=== PATIENT | female | born 1995 | race Caucasian/White ===

== ENCOUNTER 2019-08-12 12:30 | Emergency (ER) | payer OTHER, SELFPAY ==
[2019-08-12 12:40] VITALS: BP 153/88; PULSE 83; RESP 14; TEMP 36.7; O2SAT 98
[2019-08-12 14:02] LABS: Bacteria Urine None Seen; RBC Urine None Seen (0-5/HPF)
[2019-08-12 14:06] LABS: Culture Indicated Urine Cult Not Indicated; Squamous Epithelial Cell Urine 5-10 /HPF (0-5/HPF); WBC Urine 5-10/HPF (0-5/HPF)
[2019-08-12 15:00] VITALS: BP 132/71; PULSE 76; O2SAT 98
--- NOTE | 2019-08-12 17:04 | ED.FEMALEGU ---
HPI - Female Genitourinary <ZEINA Nails - Last Filed: 08/12/19 17:08> General Chief complaint: Urogenital-Female Stated complaint: 18 wks , blood in urine Time Seen by Provider: 08/12/19 12:42 Source: patient Mode of arrival: Ambulatory Limitations: no limitations History of Present Illness HPI Narrative: The patient is a 23-year-old female nonsmoker who is 18 weeks presents with a chief complaint of bloody urine that started yesterday. She states that her urine is very dark. She denies any abnormal dysuria, but complains of slight frequency. No urgency. She denies any fevers nausea vomiting or diarrhea. She denies any possibility of sexually transmitted infections. She is concerned about urinary tract infection. She denies any vaginal bleeding, states that she is positive that the blood is in her urine. She denies any flank pain. Related Data Previous Rx's Medication Instructions Recorded cephalexin 500 mg PO QID 7 Days #28 cap 08/12/19 Allergies Allergy/AdvReac Type Severity Reaction Status Date / Time No Known Drug Allergies Allergy Verified 08/12/19 12:46 Review of Systems <ZEINA Nails - Last Filed: 08/12/19 17:08> Review of Systems Narrative: GENERAL: Denies chills, fatigue, malaise, fever, sweats. HEENT: Denies sinus pain, ear pain, sore throat, difficulty swallowing, dizziness. RESPIRATORY: Denies dyspnea, cough, wheezing, hemoptysis, sputum. CARDIOVASCULAR: Denies chest pain, palpitations, orthopnea, edema, GASTROINTESTINAL: Denies nausea, vomiting, abdominal pain, diarrhea, constipation, melena. : See HPI MUSCULOSKELETAL: denies weakness, joint pain, or bony pain SKIN: Denies rash, skin lesions, or other NEUROLOGIC: Denies weakness, headache, numbness, change in speech, confusion, seizures, incoordination. PSYCHIATRIC: No concerning psychosocial issues. 12 point review of systems is negative except for those stated above Exam <ZEINA Nails - Last Filed: 08/12/19 17:08> Narrative Exam Narrative: GENERAL: This is a well-nourished, well-developed patient, in no acute distress HEAD: Atraumatic. Normocephalic. No temporal or scalp tenderness. EYES: Pupils equal round and reactive. Extraocular motions intact. No scleral icterus. No injection or drainage. ENT: Nose without bleeding, purulent drainage or septal hematoma. Throat without erythema, tonsillar hypertrophy or exudate. Uvula midline. Airway patent. NECK: Trachea midline. No JVD or lymphadenopathy. Supple, nontender, no meningeal signs. CARDIOVASCULAR: Regular rate and rhythm RESPIRATORY: Clear to auscultation. Breath sounds equal bilaterally. No wheezes, rales, or rhonchi. No cough. No increased respiratory effort. No accessory muscle use. GASTROINTESTINAL: Abdomen soft, non-tender, nondistended. No hepato-splenomegaly, or palpable masses. No guarding. Active bowel sounds all 4 quadrants. EXTREMITIES: No clubbing, cyanosis, or edema. No joint tenderness, effusion, or edema noted. BACK: Nontender without deformity or crepitance. No flank tenderness. NEURO: AOx3. SKIN: No rash or erythema. Gu: With a Mely RN at bedside, no bleeding on exterior vaginal exam, no blood noted during bimanual, no pain on bimanual. Initial Vital Signs Initial Vital Signs: Vital Signs Temperature 98.0 F 08/12/19 12:40 Pulse Rate 83 08/12/19 12:40 Respiratory Rate 14 08/12/19 12:40 Blood Pressure 153/88 H 08/12/19 12:40 Pulse Oximetry 98 08/12/19 12:40 <Duane Tobias DO - Last Filed: 08/12/19 18:42> Initial Vital Signs Initial Vital Signs: Vital Signs Temperature 98.0 F 08/12/19 12:40 Pulse Rate 83 08/12/19 12:40 Respiratory Rate 14 08/12/19 12:40 Blood Pressure 153/88 H 08/12/19 12:40 Pulse Oximetry 98 08/12/19 12:40 Scores <ZEINA Nails - Last Filed: 08/12/19 17:08> GCS [place] coma scale eye opening: Spontaneous [place] coma scale verbal response: Orientated [place] coma scale motor response: Obey commands [place] coma scale total score: 15 Course <ZEINA Nails - Last Filed: 08/12/19 17:08> Orders Ordered: ED Orders 08/12/19 13:04 Urine Culture Stat 08/12/19 13:52 Urine Microscopic Stat Vital Signs Vital signs: Vital Signs - 8 hr 08/12/19 12:40 08/12/19 15:00 Temperature 98.0 F Pulse Rate 83 76 Respiratory Rate 14 Blood Pressure 153/88 H Blood Pressure [Right Arm] 132/71 Pulse Oximetry 98 98 <Duane Tobias DO - Last Filed: 08/12/19 18:42> Orders Ordered: ED Orders 08/12/19 13:04 Urine Culture Stat 08/12/19 13:52 Urine Microscopic Stat Vital Signs Vital signs: Vital Signs - 8 hr 08/12/19 12:40 08/12/19 15:00 Temperature 98.0 F Pulse Rate 83 76 Respiratory Rate 14 Blood Pressure 153/88 H Blood Pressure [Right Arm] 132/71 Pulse Oximetry 98 98 MDM - Female Genitourinary <ZEV NailsBC - Last Filed: 08/12/19 17:08> Lab Data Labs: Lab Results 08/12/19 Range/Units 13:52 Urine RBC None seen (0-5/HPF) Urine WBC 5-10/hpf H (0-5/HPF) Ur Squamous Epith Cells 5-10 /hpf H (0-5/HPF) Urine Bacteria None seen (None) Ur Culture Indicated? Cult not indicated Urine Dip Bedside Urine Glucose Negative Bedside Urine Bilirubin - Negative Bedside Urine Ketone - Negative Urine Specific [place] 1.015 Bedside Urine Occult Blood +++ Bedside Urine pH 6.0 Bedside Urine Protein +/- 15 Bedside Urine Urobilinogen - Negative Bedside Urine Nitrite - Negative Bedside Urine Leukocytes - Negative Esterase MDM Narrative Medical decision making narrative: The patient is a 23-year-old female who presents with a chief complaint of dark, bloody urine. She has white blood cells red blood cells on urinalysis. She has no bladder vaginal exam. heart tones are in the 140s. Discussed using Keflex, monitoring for signs and symptoms of worsening, the importance of following up with primary care provider. Urine culture added. Discussed at length coming back to the emergency department for any acute concerns. Patient has been of no questions or concerns upon discharge and state understanding of return precautions as well as follow-up care. <Duane Tobias DO - Last Filed: 08/12/19 18:42> Lab Data Labs: Lab Results 08/12/19 Range/Units 13:52 Urine RBC None seen (0-5/HPF) Urine WBC 5-10/hpf H (0-5/HPF) Ur Squamous Epith Cells 5-10 /hpf H (0-5/HPF) Urine Bacteria None seen (None) Ur Culture Indicated? Cult not indicated Urine Dip Bedside Urine Glucose Negative Bedside Urine Bilirubin - Negative Bedside Urine Ketone - Negative Urine Specific [place] 1.015 Bedside Urine Occult Blood +++ Bedside Urine pH 6.0 Bedside Urine Protein +/- 15 Bedside Urine Urobilinogen - Negative Bedside Urine Nitrite - Negative Bedside Urine Leukocytes - Negative Esterase Discharge Plan Departure Patient Disposition: Home Clinical Impression: Urinary tract infection Qualifiers: Urinary tract infection type: site unspecified Hematuria presence: with hematuria Qualified Code(s): N39.0 - Urinary tract infection, site not specified Discharge Date/Time: 08/12/19 15:12 Instructions: DI for Urinary Tract Infection (UTI) Activity Restrictions/Additional Instructions: As discussed, please follow-up with primary care provider. [facility] [place]. Please take this with yogurt or probiotic. Please come back to the emergency department for any acute concerns Prescriptions: New cephalexin 500 mg capsule 500 mg PO QID 7 Days Qty: 28 RF: 0 Referrals: Janey Zuniga MD [Primary Care Provider] -
== END 2019-08-12 15:12 | disposition home or self-care (01) ==
PROVIDERS: Emergency Provider Nurse Practitioner Family; PCP Family Medicine
DX: O23.42 Unspecified infection of urinary tract in pregnancy, second trimester (principal); R31.9 Hematuria, unspecified; Z3A.18 18 weeks gestation of pregnancy
CPT/HCPCS: 81003; 81015; 87086; 99283

== ENCOUNTER → 2019-10-31 11:42 | Outpatient (CLI) | payer OTHER, SELFPAY ==
[2019-10-31 14:19] LABS: Add Manual Diff / Slide Review NO; Basophils Absolute Auto 0 /uL (0-100); Basophils Percent Auto 0.2 % (0-2); Eosinophils Absolute Auto 100 /uL (0-450); Eosinophils Percent Auto 1.2 % (2-4); Hematocrit 35.7 % (36-46); Hemoglobin 12.1 g/dL (12.0-16.0); Lymphocytes Absolute Auto 1300 /uL (1100-4500); Lymphocytes Percent Auto 18.8 % (25-40); Mean Corpuscular HGB Conc 33.8 % (30-36); Mean Corpuscular Hemoglobin 33.7 PG (26-34); Mean Corpuscular Volume 99.6 fL (80-100); Monocytes Absolute Auto 500 /uL (0-900); Monocytes Percent Auto 7.3 % (3-14); Neutrophils Absolute Auto 5100 /uL (1500-7000); Neutrophils Percent Auto 72.5 % (50-75); Platelet Count 172 X10^3/uL (150-400); Red Blood Cell Count 3.58 X10^6/uL (4.0-5.2); Red Cell Distribution Width 12.7 % (11.6-14.8)
[2019-10-31 14:49] LABS: GTT (PREG) 1 Hour PP 50gm Dose 80 mg/dL (76-139)
== END ==
PROVIDERS: PCP Family Medicine; Referring Provider Family Medicine; Visit Provider Family Medicine
DX: Z34.00 Encounter for supervision of normal first pregnancy, unspecified trimester (principal); Z3A.25 25 weeks gestation of pregnancy
CPT/HCPCS: 36415; 82950; 85025

== ENCOUNTER → 2019-12-13 11:36 | Outpatient (CLI) | payer OTHER, SELFPAY ==
[2019-12-14 11:42] LABS: Strep Grp B PCR POS for Grp B Strep
== END ==
PROVIDERS: PCP Family Medicine; Visit Provider Family Medicine
DX: Z34.03 Encounter for supervision of normal first pregnancy, third trimester (principal); Z3A.36 36 weeks gestation of pregnancy
CPT/HCPCS: 87653

== ENCOUNTER 2019-12-27 16:53 | Outpatient (CLI) | payer OTHER, SELFPAY ==
--- NOTE | 2019-12-27 17:05 | PM.OBTRLD ---
Visit Information Visit Information Date of evaluation: 12/27/19 Primary OB Provider: Eleanor Solomon Reason for Evaluation: Yes other Comments/Additional reasons for admission: Elevated BP in clinic. Evaluation for pre-eclampsia. No headache, RUQ pain, worsening swelling, vision changes. [facility], [facility] Medical History (Updated 12/28/19 @ 14:09 by Eleanor Solomon MD) Asthma (Acute) Surgical History (Updated 10/02/19 @ 14:51 by Zoya Chapman, RN) H/O wisdom tooth extraction (Acute ~2014) S/P bunionectomy (Acute ~2013) Family History (Updated 10/02/19 @ 14:49 by Zoya Chapman, DONTE) Sister Hydrocephalus Sister Miscarriage Mother Hypertension Father No problems noted. 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 Labs negative for pre-eclampsia and HELLP. NST reactive. Safe to d/c home. With single elevation would not diagnose gHTN. Will have pt check her BPs daily at home. Aware of signs/symptoms of pre-eclampsia to monitor for. F/U next week for regularly scheduled OB appt. OB Disposition: home
[2019-12-27 18:08] LABS: Add Manual Diff / Slide Review NO; Basophils Absolute Auto 100 /uL (0-100); Basophils Percent Auto 2.1 % (0-2); Eosinophils Absolute Auto 100 /uL (0-450); Eosinophils Percent Auto 0.8 % (2-4); Hematocrit 34.9 % (36-46); Hemoglobin 11.8 g/dL (12.0-16.0); Lymphocytes Absolute Auto 1400 /uL (1100-4500); Lymphocytes Percent Auto 19.7 % (25-40); Mean Corpuscular HGB Conc 33.9 % (30-36); Mean Corpuscular Hemoglobin 33.2 PG (26-34); Mean Corpuscular Volume 97.8 fL (80-100); Monocytes Absolute Auto 500 /uL (0-900); Monocytes Percent Auto 6.6 % (3-14); Neutrophils Absolute Auto 4900 /uL (1500-7000); Neutrophils Percent Auto 70.8 % (50-75); Platelet Count 152 X10^3/uL (150-400); Red Blood Cell Count 3.57 X10^6/uL (4.0-5.2); Red Cell Distribution Width 12.7 % (11.6-14.8)
[2019-12-27 18:15] LABS: Alanine Aminotransferase 13 IU/L (<35); Albumin 3.7 g/dL (3.5-5.0); Albumin Globulin Ratio 1.4 (1.0-2.8); Alkaline Phosphatase 100 U/L (38-126); Aspartate Aminotransferase 21 IU/L (14-36); Bilirubin Total 0.6 mg/dL (0.2-1.3); Blood Urea Nitrogen 8 mg/dL (7-17); Calcium 10.2 mg/dL (8.4-10.2); Carbon Dioxide 22 mmol/L (22-32); Chloride 106 mmol/L (98-107); Estimated Glomerular Filt Rate > 60.0 mL/min (>60); Globulin 2.7 g/dL (1.7-4.1); Glucose 122 mg/dL (70-100); HEMOLYSIS < 15 (0-50); Potassium 3.5 mmol/L (3.4-5.1); Sodium 135 mmol/L (137-145); Total Protein 6.4 g/dL (6.3-8.2); Uric Acid 2.5 mg/dL (2.5-6.2)
[2019-12-27 18:42] LABS: Creatinine Urine Random 89.4 mg/dL; Protein (Total) Urine Random 11 mg/dL (0-12); Protein Creatinine Ratio Urine 0.12 GRAM/24H
== END 2019-12-27 18:51 | disposition home or self-care (01) ==
LOC: OB 12-29 12:43
PROVIDERS: PCP Family Medicine; Referring Provider Family Medicine; Visit Provider Family Medicine
DX: O26.893 Other specified pregnancy related conditions, third trimester (principal); R03.0 Elevated blood-pressure reading, without diagnosis of hypertension; Z3A.37 37 weeks gestation of pregnancy
CPT/HCPCS: 36415; 59025; 80053; 82570; 84156; 84550; 85025; G0378; G0379

== ENCOUNTER → 2020-01-21 14:00 | Outpatient (CLI) | payer OTHER, SELFPAY ==
[2020-01-22 20:35] LABS: COVID19 Sendout Not Detected (Not Detect)
== END ==
PROVIDERS: PCP Family Medicine; Visit Provider Nurse Practitioner
DX: Z11.59 Encounter for screening for other viral diseases (principal)
CPT/HCPCS: 87635

== ENCOUNTER 2020-01-22 03:10 | Observation (INO) | payer OTHER, SELFPAY ==
--- NOTE | 2020-01-22 09:59 | P.TNLD_ITS ---
Visit Information Visit Information Date of evaluation: 01/22/20 Primary OB Provider: Eleanor Solomon On-call OB Provider: Adeline Radford Reason for Evaluation: Yes rule out labor [facility] Medical History (Updated 01/19/20 @ 15:13 by Eleanor Solomon MD) Asthma (Acute) Surgical History (Updated 10/02/19 @ 14:51 by Zoya Chapman, RN) H/O wisdom tooth extraction (Acute ~2014) S/P bunionectomy (Acute ~2013) Family History (Updated 10/02/19 @ 14:49 by Zoya Chapman, RN) Sister Hydrocephalus Sister Miscarriage Mother Hypertension Father No problems noted. 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 needs: No Smoking Status: Former smoker Tobacco: How many years used: 4 second hand exposure: No alcohol intake: former substance use type: does not use Evaluation Evaluation Baseline heart rate: 140 Variability: Moderate (11-25) monitor accelerations: Present monitor decelerations: Absent Contraction Frequency (minutes): 8 Uterine Contraction Intensity: Mild Category of Tracing: I Cervical dilation (cm): 1 Cervical effacement (%): 60 station: -2 Diagnosis, Plan/Disposition Plan/Disposition Plan: Assessment: 24 year old at 41 weeks not in active labor Scheduled for induction tonight Plan: S/S labor reviewed Induction tonight OB Disposition: home
== END 2020-01-22 05:40 | disposition home or self-care (01) ==
LOC: LABOR 03:18
PROVIDERS: Admitting Provider Family Medicine; PCP Family Medicine; Referring Provider Family Medicine; Visit Provider Family Medicine
DX: Z3A.40 40 weeks gestation of pregnancy (principal)
CPT/HCPCS: 59025; G0378; G0379

== ENCOUNTER 2020-01-22 18:06 | Inpatient (IN) | payer OTHER, SELFPAY ==
[2020-01-22] MEDS: DINOPROSTONE VAG (CERVIDIL) 10 MG VAG (19:52)
[2020-01-22 20:12] VITALS: BP 139/67
[2020-01-22 20:42] LABS: Add Manual Diff / Slide Review NO; Basophils Absolute Auto 0 /uL (0-100); Basophils Percent Auto 0.4 % (0-2); Eosinophils Absolute Auto 100 /uL (0-450); Hematocrit 35.9 % (36-46); Hemoglobin 12.2 g/dL (12.0-16.0); Lymphocytes Absolute Auto 1400 /uL (1100-4500); Lymphocytes Percent Auto 17.6 % (25-40); Mean Corpuscular HGB Conc 33.9 % (30-36); Mean Corpuscular Hemoglobin 33.3 PG (26-34); Mean Corpuscular Volume 98.3 fL (80-100); Monocytes Absolute Auto 700 /uL (0-900); Monocytes Percent Auto 8.6 % (3-14); Neutrophils Absolute Auto 5800 /uL (1500-7000); Neutrophils Percent Auto 72.4 % (50-75); Platelet Count 168 X10^3/uL (150-400); Red Blood Cell Count 3.65 X10^6/uL (4.0-5.2); Red Cell Distribution Width 12.8 % (11.6-14.8)
--- NOTE | 2020-01-23 05:58 | P.HPOB_ITS ---
OB HPI Date/Time Date of admission: 01/22/20 Date Patient Seen: 01/23/20 Time Patient Seen: 05:40 History of Present Condition Chief complaint: Obs : 1 Para: 0 Estimated Date of Delivery: 01/15/20 Estimated Gestational Age (weeks): 41w1d Narrative: Keiry Pritchett is a 24 year old at 41w1d who presented for IOL for post-dates. Pt has been feeling mild intermittent contractions. No LOF or vaginal bleeding. She is feeling her baby move regularly. Indications Indication for induction OB: post dates History of Present care: good care, initiated at week # (8) and pounds weight gain (37) Dating criteria: LMP confirmed by 1st trimester US Ultrasounds: normal 1st trimester US and normal mid trimester US Obstetrical complications: none Medical complications: none Preadmission Labs Blood type: O (+) positive -: Antibody screen: negative, Cystic fibrosis screen: negative, GBS status: positive, HBsAG: negative, HIV: negative and RPR/VDLR: negative -: Chlamydia screen: not detected and Gonorrhea screen: not detected -: Rubella: immune and Varicella: immune HCT: 35.9 HCAB: negative Integrated screen: Negative Urine: Negative 1 hr GTT: 77 Evaluation Evaluation Baseline heart rate: 120 Variability: Moderate (11-25) monitor accelerations: Present monitor decelerations: Absent Contraction Frequency (minutes): 5 Uterine Contraction Intensity: Moderate Category of Tracing: I Cervical dilation (cm): 1 Cervical effacement (%): 50 station: -2 Laboratory results: Laboratory Tests 01/22/20 01/22/20 19:40 19:40 WBC 8.0 RBC 3.65 L Hgb 12.2 Hct 35.9 L MCV 98.3 MCH 33.3 MCHC 33.9 RDW 12.8 Plt Count 168 Neut % (Auto) 72.4 Lymph % (Auto) 17.6 L [place] % (Auto) 8.6 Eos % (Auto) 1.0 L Baso % (Auto) 0.4 Neut # (Auto) 5800 Lymph # (Auto) 1400 [place] # (Auto) 700 Eos # (Auto) 100 Baso # (Auto) 0 Blood Type O Positive Antibody Screen Negative [facility] Medical History (Updated 01/19/20 @ 15:13 by Eleanor Solomon MD) Asthma (Acute) Surgical History (Updated 10/02/19 @ 14:51 by Zoya Chapman, RN) H/O wisdom tooth extraction (Acute ~2014) S/P bunionectomy (Acute ~2013) Family History (Updated 10/02/19 @ 14:49 by Zoya Cahpman, RN) Sister Hydrocephalus Sister Miscarriage Mother Hypertension Father No problems noted. 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: No Smoking Status: Never smoker Tobacco: How many years used: 4 second hand exposure: No alcohol intake: former substance use type: does not use Meds Home Medications and Allergies Home Medications Medication Instructions Recorded Confirmed Type cetirizine 10 mg capsule 10 mg PO DAILY 10/02/19 01/23/20 History prenat.vits,danis,[id number] 1 tab PO DAILY 10/02/19 01/23/20 History Allergies Allergy/AdvReac Type Severity Reaction Status Date / Time nickel Allergy Intermediate Rash Verified 01/21/20 14:22 Exam Narrative Exam Narrative: Gen: NAD, sitting comfortably in bed, appears well CV: RRR, no murmurs Resp: clear to auscultation bilaterally Abd: soft, nontender, nondistended, gravid Ext: trace edema Objective Labs Result Diagrams: 01/22/20 19:40 Labs: Laboratory Results - last 24 hr 01/22/20 01/22/20 19:40 19:40 WBC 8.0 RBC 3.65 L Hgb 12.2 Hct 35.9 L MCV 98.3 MCH 33.3 MCHC 33.9 RDW 12.8 Plt Count 168 Neut % (Auto) 72.4 Lymph % (Auto) 17.6 L [place] % (Auto) 8.6 Eos % (Auto) 1.0 L Baso % (Auto) 0.4 Neut # (Auto) 5800 Lymph # (Auto) 1400 [place] # (Auto) 700 Eos # (Auto) 100 Baso # (Auto) 0 Blood Type O Positive Antibody Screen Negative Assessment and Plan Assessment and Plan Assessment and Plan narrative: 24yo at 41w1d who presented for post-dates IOL. No complications with . GBS positive, Rh positive. Received cervidil overnight, now with more regular mildly painful contractions however only minimal cervical change. After informed consent, davies placed to assist with cervical dilation. - Expectant management, anticipate - FHT reassuring - GBS positive, start prophylaxis when in active labor - Epidural for pain control when desired, ideally when in active labor after davies removed - Davies to remain for up to 12 hours. Gentle traction in place. Frequent checks to ensure not in vagina. Low dose pitocin if contractions slow.
[2020-01-23] MEDS: CALCIUM CARBONATE 500 MG TAB PO ×2 (10:38→21:02)
[2020-01-23] MEDS: LACTATED RINGERS 1,000 ML 100 ML IV ×2 (10:58→12:50)
[2020-01-23] MEDS: PENICILLIN G POTASSIUM 5,000,000 UNIT in DEXTROSE 5% IN WATER 250 ML IV (10:58)
[2020-01-23] MEDS: OXYTOCIN PREMIX 30 UNIT/500 ML PLAST..BAG IV (11:00)
[2020-01-23] MEDS: PENICILLIN G POTASSIUM 3,000,000 UNIT/50 ML FROZ.PIGGY 100 UNIT IV ×2 (15:08→18:55)
--- NOTE | 2020-01-23 16:06 | PM.OBPNLAB ---
Date/Time Date Patient Seen: 01/23/20 Time Patient Seen: 12:45 Pelvic Exam Dilation (cm): 3 Effacement (%): 50 station: -1 Contractions Pitocin rate (mU/min): 5 Contraction frequency (min): 3 Contraction duration (min): 1 Contraction pattern: Regular Contraction intensity: Moderate Status status: Category l Heart Rate Baseline: 130 Monitor Accelerations: Present Monitor Decelerations: Absent Monitor Variability: Moderate Assessment and Plan Comments: 24yo at 41w1d who presented for post-dates IOL. No complications with . GBS positive, Rh positive. Received cervidil overnight, with only minimal cervical change. Souza then placed, fell out recently. Now on pitocin. - Expectant management, anticipate - FHT reassuring - GBS positive, start prophylaxis now with penicillin - Epidural for pain control - Continue pitocin, titrate as tolerated
--- NOTE | 2020-01-23 16:09 | PM.OBPNLAB ---
Date/Time Date Patient Seen: 01/23/20 Time Patient Seen: 16:09 Pelvic Exam Dilation (cm): 5 Effacement (%): 80 station: -1 Amniotic membrane status: Ruptured Comments: After informed consent, AROM performed with production of blood-tinged fluid. Contractions Pitocin rate (mU/min): 5 Contraction frequency (min): 3 Contraction pattern: Regular Contraction intensity: Moderate Intrauterine tone measurement: 200 Status status: Category ll Heart Rate Baseline: 130 Monitor Accelerations: Present Monitor Decelerations: Variable (recurrent, deep to the 80s) Monitor Variability: Moderate Assessment and Plan Comments: 24yo at 41w1d who presented for post-dates IOL. No complications with . GBS positive, Rh positive. Received cervidil overnight, with only minimal cervical change. Souza then placed, fell out with cervical dilation. AROM performed with production of clear fluid, however now with recurrent deep variable decels. Position changes and oxygen did not resolve. IUPC placed and amnioinfusion initiated, with evidence of some improvement in decels. - Expectant management, anticipate - Continue amnioinfusion, 500cc bolus then 200cc/hr for recurrent variable decels. Will closely and cautiously monitor FHT. - GBS positive, has received adequate penicillin prophylaxis, will continue - Epidural for pain control in place - Pitocin turned down from 10 to 5. Will continue to monitor closely, if variables do not resolve then will need to turn off
[2020-01-23] MEDS: FENT 2MCG/ML BUPIV 0.125% EPI 200 MCG/100 ML PLAST..BAG 1 MCG EPIDURAL (22:45)
--- NOTE | 2020-01-24 00:30 | PM.OBPRVD ---
Labor & Delivery Delivery date: 01/23/20 Route of delivery: Episiotomy description: None Estimated blood loss (mL): 700 Complications: hemorrhage due to clot retention Narrative: PROCEDURE: at 41w0d presented for post-dates IOL and was admitted to Labor and Delivery. The patient progressed through the 1st stage over 8 hours. She received cervidil which did induce pain contractions but minimal cervical change. A davies catheter was then placed, which fell out when her cervix was 3cm dilated. Pain was controlled with an epidural. Pitocin was then initiated. The pt received adequate GBS prophylaxis with penicillin. AROM was performed with production of clear fluid. The pt then had deep recurrent variable decels. IUPC was placed, showing more than adequate contractions, and amnioinfusion initiated. This along with position changes caused resolution of the decels. The pt then progressed to complete. The patient progressed through the 2nd stage over 44 minutes and delivered a viable male with APGARs 8/9 at 23:54 via without complications. The perineum and vagina were inspected with right labial laceration repaired with 4-O chromic, 1st degree perineal laceration repaired with 3-O Chromic, and left labial laceration not repaired due to hemostasis. , the pt did have heavy bleeding which resolved after manual extraction of large clots from the cervical opening. PREPROCEDURE DIAGNOSIS: Intrauterine at 41w0d GBS positive RH negative POSTPROCEDURE DIAGNOSIS: Intrauterine at 41w1d, delivered Same as preprocedure hemorrhage PROCEDURE: [] INDUCTION: Cervidil then davies LABOR AUGMENTATION: AROM, pitocin ROM APPEARANCE: Clear BABY A DELIVERY TIME: 23:54 BABY A OUTCOME: Viable BABY A WEIGHT: [id number] BABY A NUCHAL CORD: None PLACENTA DELIVERY TIME: 00:06 PLACENTA APPEARANCE: Intact [place] Baby 1: Infant gender: Male Presentation: vertex position: Right Occiput Anterior Placenta delivery description: Spontaneous cord vessel description: 3 Vessels Plan for aftercare: Normal care
[2020-01-24] MEDS: IBUPROFEN 600 MG TABLET PO ×2 (01:52→07:58)
[2020-01-24] MEDS: DERMOPLAST SPRAY 20% 60 ML 1 SPRAY TOP (01:52)
[2020-01-24 06:17] LABS: Hematocrit 29.6 % (36-46); Hemoglobin 10.1 g/dL (12.0-16.0)
[2020-01-24] MEDS: DOCUSATE 100 MG CAPSULE PO (07:58)
[2020-01-24] MEDS: PRENATAL VIT,CALC/IRON/FOLIC 1 TABLET 1 TAB PO (07:58)
[2020-01-24] MEDS: LANOLIN OINT 7 GM 1 APPLIC TOP (07:58)
--- NOTE | 2020-01-24 10:20 | P.DS_ITS ---
Discharge Providers Provider Date of admission: 01/22/20 18:06 Discharge Date: 01/24/20 Primary care physician: Janey Zuniga MD Consults: 01/25/20 00:29 Consult to Sr. Merchandise Planner Routine Comment: Discharge provider: Eleanor Solomon MD Summary Hospital Course Date Patient Seen: 01/24/20 Time Patient Seen: 08:00 Procedures: Spontaneous vaginal delivery Hospital Course: The pt presented for post-dates IOL. She received cervidil and then davies was placed for induction. After the davies fell out, pitocin was initiated. Pain was controlled with an epidural. The pt received adequate GBS prophylaxis with penicillin. AROM was performed with production of clear fluid. The pt then had deep recurrent variable decels. Amnioinfusion was initiated, with resolution of the decels. The pt then progressed to complete and had a of a viable baby boy on 01/23/20. Right labial laceration and 1st degree perineal laceration were repaired, and left labial laceration not repaired due to hemostasis. , the pt did have heavy bleeding which resolved after manual extraction of large clots from the cervical opening. The pt tolerated delivery well. At the time of discharge she was voiding, passing flatus, and ambulating without difficulty. Her lochia was decreasing appropriately. She was breast- feeding with good latch. Her pain was adequately controlled. She will follow- up in clinic in 6 weeks for check. Peripartum Data Delivery Method: Natural Vaginal Laceration Description: Perineal - 1st Degree and Labial Episiotomy description: None Procedures: Spontaneous vaginal delivery complications: none [place] 1: Gender: Male Disposition of : home Discharge Diagnosis (1) Spontaneous vaginal delivery: Status: Acute Status at Discharge Cognitive/behavioral status at discharge: oriented Functional status at discharge: independent ambulation Overall status at discharge: patient is progressing back to baseline Time Spent with Patient Time attestation: Total time spent providing and/or coordinating discharge services: Objective Labs Result Diagrams: 01/24/20 06:05 Labs: Laboratory Results - last 24 hr 01/24/20 06:05 Hgb 10.1 L Hct 29.6 L Exam Narrative Exam Narrative: General: No acute distress, sitting comfortably in bed, appears well CV: Regular rate and rhythm, no murmurs Respiratory: Clear to auscultation bilaterally Abdomen: Soft, nontender, nondistended, fundus firm well below the umbilicus Extremities: No edema Discharge Plan Discharge Plan Patient Disposition: Home Discharge orders & Medications Prescriptions: New acetaminophen 325 mg Tablet 650 mg PO Q6HR PRN (Reason: Pain, Mild (1-3)) Qty: 30 RF: 0 Dermoplast (with menthol) 20-0.5 % Aerosol 1 spray topical Q1HR PRN (Reason: perineal pain) Qty: 56 RF: 0 docusate sodium [DOK] 100 mg Capsule 100 mg PO DAILY Qty: 30 RF: 0 ibuprofen 600 mg Tablet 600 mg PO Q6HR PRN (Reason: Pain, Mild (1-3)) Qty: 30 RF: 0 [id number] Cream 1 applic topical PRN PRN (Reason: Tenderness) Qty: 28 RF: 0 Continued prenat.vits,danis,[id number] Tablet 1 tab PO DAILY RF: 0 Zyrtec 10 mg capsule 10 mg PO DAILY RF: 0 Follow up/Referrals: Janey Zuniga MD [Primary Care Provider] - Eleanor Solomon MD [Physician] - 6 Weeks Diet/Activity/Treatments Diet: Diet as Tolerated and Regular Skin/Wound/Dressing Care Report to your healthcare provider any signs of infection, such as:: chills, fever, increased pain and unusual drainage Visit Report/Discharge Packet Instructions: DI for Labor and Delivery, Vaginal Visit Report Forms: Patient Portal/API, Stroke Signs & Symptoms Discharge Data Primary Care Provider: Janey Zuniga
[2020-01-24 15:24] VITALS: BP 139/67; PULSE 88; RESP 18; TEMP 36.3
== END 2020-01-24 19:30 | disposition home or self-care (01) | DRG 807 ==
PROVIDERS: Admitting Provider Family Medicine; PCP Family Medicine; Referring Provider Family Medicine; Visit Provider Family Medicine
DX: O48.0 Post-term pregnancy (principal); Z37.0 Single live birth; Z3A.41 41 weeks gestation of pregnancy; O99.824 Streptococcus B carrier state complicating childbirth; O70.0 First degree perineal laceration during delivery
CPT/HCPCS: 01967; 36415; 59025; 59050; 59200; 59410; 85014; 85018; 85025; 86850; 86900; 86901; G0378; G0379; J2540; J2590

== ENCOUNTER → 2023-03-22 14:11 | Outpatient (CLI) | payer OTHER, SELFPAY ==
[2023-03-24 12:57] LABS: Candida species Negative (Negative); Gardnerella vaginalis Positive (Negative); Trichomoas vaginalis Negative (Negative)
== END ==
PROVIDERS: Visit Provider Physician Assistant Medical
DX: N89.8 Other specified noninflammatory disorders of vagina (principal); Z11.3 Encounter for screening for infections with a predominantly sexual mode of transmission; Z20.2 Contact with and (suspected) exposure to infections with a predominantly sexual mode of transmission
CPT/HCPCS: 87480; 87510; 87660

== ENCOUNTER → 2023-04-02 10:47 | Outpatient (CLI) | payer OTHER, SELFPAY | PROVIDERS: Referring Provider Family Medicine; Visit Provider Family Medicine | DX: Z23 Encounter for immunization (principal) | CPT/HCPCS: 90471; 90686 ==

== ENCOUNTER → 2023-04-20 12:25 | Outpatient (CLI) | payer OTHER, SELFPAY ==
[2023-04-20 17:34] LABS: Urine N gonorrhoeae NOT DETECTED
[2023-04-20 17:48] LABS: Urine Chlamydia NOT DETECTED
[2023-04-22 03:23] LABS: RPR Screen Non Reactive (Non Reactive)
[2023-04-22 16:18] LABS: Hepatitis B Surface Antigen NEGATIVE s/c (NEGATIVE)
[2023-04-22 16:48] LABS: HIV 1 & 2 Ab/Ag 4th Gen Combo NEGATIVE (NEGATIVE); Hep C Virus Ab w/Reflex Quant NEGATIVE s/c (NEGATIVE)
== END ==
PROVIDERS: Referring Provider Physician Assistant Medical; Visit Provider Physician Assistant Medical
DX: Z11.3 Encounter for screening for infections with a predominantly sexual mode of transmission (principal); Z20.2 Contact with and (suspected) exposure to infections with a predominantly sexual mode of transmission
CPT/HCPCS: 36415; 86592; 86803; 87340; 87389; 87491; 87591

== ENCOUNTER → 2023-08-11 10:36 | Outpatient (CLI) | payer OTHER, SELFPAY ==
[2023-08-11 14:52] LABS: Urine N gonorrhoeae NOT DETECTED
[2023-08-11 15:46] LABS: Urine Chlamydia NOT DETECTED
[2023-08-12 05:37] LABS: RPR Screen Non Reactive (Non Reactive)
[2023-08-12 17:39] LABS: Hepatitis B Surface Antigen NEGATIVE s/c (NEGATIVE)
[2023-08-12 18:08] LABS: HIV 1 & 2 Ab/Ag 4th Gen Combo NEGATIVE (NEGATIVE); Hep C Virus Ab w/Reflex Quant NEGATIVE s/c (NEGATIVE)
[2023-08-15 11:36] LABS: HSV 2 IGG AB 7.09 index (0.00-0.90)
== END ==
PROVIDERS: Referring Provider Physician Assistant Medical; Visit Provider Physician Assistant Medical
DX: Z20.2 Contact with and (suspected) exposure to infections with a predominantly sexual mode of transmission (principal)
CPT/HCPCS: 36415; 86592; 86695; 86696; 86803; 87340; 87389; 87491; 87591